=== PATIENT | female | born 1975 | race Caucasian/White ===

== ENCOUNTER 2016-09-30 20:22 | Emergency (ER) | payer MEDICAID ==
[~2016-09-30] VITALS: Ht 172.7 cm; Wt 108.9 kg
[~2016-09-30 20:22] MED LIST: CLOZ100T7 PO; DOCU100C37 PO; ESCI20TA45 PO; FURO40TA4 PO; HYDR50CA3 PO; LEVO500T2 PO; LITH300C PO; LORA10TA7 PO; NORE0.3520 PO; RANI150T11 PO; RSP50S IM; TRAM50TA2 PO
--- NOTE | 2016-09-30 20:50 | ED Integumentary General ---
General Chief Complaint: Skin/Wound Problems Stated Complaint: INFECTION ON LITTLE TOE RIGHT FOOT Nursing Triage Note: PLANTAR WART Source: patient Exam Limitations: no limitations History of Present Illness Time seen by provider: 20:46 Initial Comments To ER with reports of a wart on her foot. This is over the fifth MTP joint on the plantar surface. Been present for quite some time and is causing her pain and causing her to walk differently which is now caused her back pain. Pain in her back does not radiate and there is been no loss of bowel or bladder control or saddle anesthesia Timing/Duration: constant Severity: moderate Associated Symptoms: denies symptoms Allergies and Home Medications Allergies Coded Allergies: Soap (Verified Allergy, Unknown, 02/07/06) benztropine (Verified Allergy, Unknown, 07/08/05) divalproex sodium (Verified Allergy, Unknown, 07/08/05) Home Medications Clozapine 100 Mg Tablet, 200 MG PO DAILY, (Reported) TAKES 2 (100 MG) TABLETS Clozapine 100 Mg Tablet, 250 MG PO HS, (Reported) TAKES 2 & 1/2 OF A (100 MG) TABLET Docusate Sodium 100 Mg Capsule, 100 MG PO BID PRN for CONSTIPATION, (Reported) Escitalopram Oxalate 20 Mg Tablet, 20 MG PO DAILY, (Reported) [place] Carbonate 300 Mg Capsule, 300 MG PO TID, (Reported) Loratadine 10 Mg Tablet, 10 MG PO DAILY, (Reported) Ranitidine HCl 150 Mg Tablet, 150 MG PO BID, (Reported) Risperidone 50 Mg/2 Ml Inj, 50 MG IM EVERY 2 WEEKS, (Reported) Constitutional: see HPI EENTM: see HPI Respiratory: no symptoms reported Cardiovascular: no symptoms reported Genitourinary: no symptoms reported Musculoskeletal: no symptoms reported Skin: no symptoms reported Psychiatric/Neurological: No Symptoms Reported Endocrine: No Symptoms Reported Past Ykmiibs-Hrrcfj-Piocrv Hx Patient Social History Alcohol Use: Denies Use Recreational Drug Use: No Smoking Status: Current Everyday Smoker Type Used: Cigarettes 2nd Hand Smoke Exposure: Yes Recent Foreign Travel: No Contact w/Someone Who Travel: No Recent Infectious Disease Expo: No Recent Hopitalizations: No Immunizations Up To Date Tetanus Booster (TDap): Unknown Date of Influenza Vaccine: May 15, 2015 Seasonal Allergies Seasonal Allergies: Yes Surgeries HX Surgeries: No Respiratory Hx Respiratory Disorders: No Cardiovascular Hx Cardiac Disorders: No Neurological Hx Neurological Disorders: Yes Reproductive System Hx Reproductive Disorders: No Sexually Transmitted Disease: No HIV/AIDS: No Genitourinary Hx Genitourinary Disorders: No Gastrointestinal Hx Gastrointestinal Disorders: Yes (HEART BURN) Musculoskeletal Hx Musculoskeletal Disorders: No Endocrine Hx Endocrine Disorders: No HEENT HX ENT Disorders: No Loss of Vision: Denies Hearing Impairment: Denies Cancer Hx Cancer: No Psychosocial Hx Psychiatric Problems: Yes Behavioral Health Disorders: Anxiety, Bipolar, Schizophrenia, Depression Integumentary HX Skin/Integumentary Disorder: No Blood Transfusions Hx Blood Disorders: Yes (STATES BLOOD TRANSFUSION AT 11 YEARS OLD.) Adverse Reaction to a Blood Tr: No Family Medical History Family Medial History: Patient reports no known family medical history. Physical Exam Vital Signs Vital Sign - Last 12Hours 09/30/16 20:41 Temp 97.7 Pulse 100 Resp 18 B/P (MAP) 135/91 Pulse Ox 98 O2 Delivery Room Air Capillary Refill : Less Than 3 Seconds General Appearance: WD/WN, no apparent distress HEENT: PERRL/EOMI, normal ENT inspection Neck: non-tender, full range of motion, supple Respiratory: no respiratory distress, no accessory muscle use Gastrointestinal: normal bowel sounds, non tender Extremities: normal range of motion, non-tender, other (corn over the plantar surface of the foot at the right fifth MTP joint.) Neurologic/Psychiatric: alert, normal mood/affect, oriented x 3 Skin: normal color, warm/dry Progress/Results/Core Measures Results/Orders My Orders Orders - NEVILLE WILLS APRN Ketorolac Injection (Toradol Injection) (09/30/16 21:00) Orphenadrine Injection (Norflex Injectio (09/30/16 21:00) Vital Signs/I&O Vital Sign - Last 12Hours 09/30/16 20:41 Temp 97.7 Pulse 100 Resp 18 B/P (MAP) 135/91 Pulse Ox 98 O2 Delivery Room Air Blood Pressure Mean: 106 Departure Impression Impression: Primary Impression: [place] of foot Disposition: 01 HOME, SELF-CARE Condition: Stable Departure-Patient Inst. Decision time for Depature: 20:49 Referrals: CIERA DICKSON DPM, RICHARD A DO (PCP/Family) Primary Care Physician AYAD RUIZ DPM JUDY VILLALPANDO DPM Patient Instructions: Corns and Calluses Add. Discharge Instructions: 1. Return to ER for any concerns 2. Purchase some of the bwpy-ncy-jvrejxf corn cushions 3. Follow-up with the physicians listed All discharge instructions reviewed with patient and/or family. Voiced understanding. NEVILLE WILLS [facility] September 30, 2016 20:50
[2016-09-30] MEDS ORDERED: KETOROLAC 60 MG/2 ML VIAL IM ONE (21:00)
[2016-09-30] MEDS ORDERED: ORPHENADRINE 60 MG/2 ML (NORFLEX) AMP IM ONE (21:00)
[2016-09-30 21:07] VITALS: BP 135/91
== END 2016-09-30 21:08 | disposition home or self-care (01) ==
LOC: EDUNIT# 20:22 → ER 20:24
DX: L84 Corns and callosities (principal)
CPT/HCPCS: 96372; 99281

== ENCOUNTER → 2017-01-27 | Outpatient (CLI) | payer MEDICAID ==
--- NOTE | 2017-01-27 14:55 | Diagnostic Imaging Report ---
Three views of the right ankle. INDICATION: Right ankle pain. FINDINGS: There is no fracture, dislocation or radiopaque foreign body. The ankle mortise is normal in configuration. IMPRESSION: Unremarkable exam. Dictated by: Dictated on workstation # [id number]
--- NOTE | 2017-01-27 15:01 | Diagnostic Imaging Report ---
Two views of the right foot. INDICATION: Right foot pain. FINDINGS: No fracture, dislocation or radiopaque foreign body is seen. There is hallux valgus deformity seen. IMPRESSION: Hallux valgus. Dictated by: Dictated on workstation # [id number]
== END ==
LOC: RAD 12:32
PROVIDERS: ATTEND Family Medicine
DX: M20.11 Hallux valgus (acquired), right foot (principal); M25.571 Pain in right ankle and joints of right foot
CPT/HCPCS: 73610; 73630

== ENCOUNTER → 2017-12-03 | Outpatient (CLI) | payer MEDICAID ==
--- NOTE | 2017-12-03 19:12 | Diagnostic Imaging Report ---
INDICATION: Digital mammogram bilateral screening with 3-D tomosynthesis. This study was compared to the prior exam of 10/24/13. At this time, there are no current complaints. The current study was also evaluated with a Computer Aided Detection (CAD) system. FINDINGS: There are scattered fibroglandular densities in both breasts which could obscure a lesion. Overall, there does not appear to have been any significant change when compared to the prior exam. No primary or secondary sign of malignancy is noted. 3D tomographic images fail to show any sign of malignancy. IMPRESSION: 1. There is no evidence of malignancy. 2. The patient should have her annual bilateral screening mammogram on schedule in November of 2018. ACR BI-RADS Category 1: Negative. Result letter will be mailed to the patient. Note: At least 10% of breast cancer is not imaged by mammography. Dictated by: Dictated on workstation # [id number]
== END ==
LOC: RAD 10:10
PROVIDERS: ATTEND Family Medicine
DX: Z12.31 Encounter for screening mammogram for malignant neoplasm of breast (principal)
CPT/HCPCS: 77067

== ENCOUNTER → 2018-12-28 | Outpatient (CLI) | payer MEDICAID ==
--- NOTE | 2018-12-28 19:09 | Diagnostic Imaging Report ---
INDICATION: Routine screening. COMPARISON: Comparison is made with prior mammograms from 12/03/2017 and 10/24/2013. TECHNIQUE: 2-D and 3-D bilateral screening mammography was performed. The current study was also evaluated with a Computer Aided Detection (CAD) system. 3-D tomosynthesis was also performed and reviewed. FINDINGS: Scattered fibroglandular densities are identified bilaterally. The parenchymal pattern is stable. No mass or malignant-appearing microcalcifications are seen. The axillae are unremarkable. IMPRESSION: No mammographic features suspicious for malignancy are identified. ACR BI-RADS Category 1: Negative. Result letter will be mailed to the patient. Note: At least 10% of breast cancer is not imaged by mammography. Dictated by: Dictated on workstation # [id number]
== END ==
LOC: RAD 13:37
PROVIDERS: ATTEND Family Medicine
DX: Z12.31 Encounter for screening mammogram for malignant neoplasm of breast (principal)
CPT/HCPCS: 77067

== ENCOUNTER → 2019-12-30 | Outpatient (CLI) | payer MEDICAID ==
--- NOTE | 2019-12-30 12:52 | Diagnostic Imaging Report ---
INDICATION: Routine screening. Comparison is made with prior mammogram from 12/28/2018 and 12/03/2017. 2-D and 3-D bilateral screening mammography was performed with CAD. Scattered fibroglandular densities are identified bilaterally. The parenchymal pattern is stable. No dominant mass or malignant appearing microcalcifications are seen. Axillae are unremarkable. IMPRESSION: BI-RADS Category 1 No mammographic features suspicious for malignancy are identified. ACR BI-RADS Category 1: Negative. Result letter will be mailed to the patient. Note: At least 10% of breast cancer is not imaged by mammography. Dictated by: Dictated on workstation # [id number]
== END ==
LOC: RAD 10:00
PROVIDERS: ATTEND Family Medicine
DX: Z12.31 Encounter for screening mammogram for malignant neoplasm of breast (principal)
CPT/HCPCS: 77063; 77067

== ENCOUNTER 2021-10-29 20:20 | Emergency (ER) | payer MEDICAID ==
[~2021-10-29] VITALS: Ht 173 cm; Wt 97.3 kg
[~2021-10-29 20:20] MED LIST changes: +ESCI20TA39 PO; -ESCI20TA45 PO
[2021-10-29 20:28] VITALS: BP 133/83
[2021-10-29] MEDS ORDERED: FAMO20TA5 (20:34)
[2021-10-29] MEDS ORDERED: FURO40TA4 (20:34)
[2021-10-29] MEDS ORDERED: RX-TRIMETH/SULFA. 160-800 MG (BACTRIM DS) TAB PPK#2 PO STA (21:06)
[2021-10-29] MEDS ORDERED: SULF1TAB38 PO (21:13)
[2021-10-29] MEDS ORDERED: MUPI22OI2 TP (21:13)
--- NOTE | 2021-10-29 21:13 | ED Integumentary General ---
General Chief Complaint: Skin/Wound Problems Stated Complaint: SPIDER BITE Nursing Triage Note: brought in by [facility] for possible spider bite to medial right eyebrow x2 days. site red/swollen. Source: patient History of Present Illness Date Seen by Provider: Oct 29, 2021 Time Seen by Provider: 20:57 Initial Comments PT ARRIVES VIA EMS FROM HOME--WALKS INTO ER FROM THE AMBULANCE C/O SORE TO FOREHEAD FOR THE LAST COUPLE OF DAYS HAS SOME PAIN, REDNESS AND SWELLING AROUND THE SORE NO FEVER NO DRAINAGE HAS MULTIPLE OTHER SORES TO FACE, ARMS AND CHEST AND PT NOTED TO BE PICKING AT SORES ON HER ARMS DURING EXAM LAST TETANUS IS UNKNOWN PCP: DR. MOORE Allergies and Home Medications Allergies Coded Allergies: Soap (Verified Allergy, Unknown, 02/07/06) benztropine (Verified Allergy, Unknown, 07/08/05) divalproex sodium (Verified Allergy, Unknown, 07/08/05) Patient Home Medication List Home Medication List Reviewed: Yes Docusate Sodium (Docusate Sodium) 100 Mg Capsule, 100 MG PO BID PRN for CONSTIPATION, (Reported) Entered as Reported by: LAQUITA SAAB on 07/16/15 1025 Last Action: Last Taken Edited Escitalopram Oxalate (Escitalopram Oxalate) 20 Mg Tablet, 20 MG PO DAILY, (Reported) Entered as Reported by: BOB SARMIENTO on 07/14/151455 Last Action: Last Taken Edited Famotidine (Famotidine) 20 Mg Tablet, (Reported) Entered as Reported by: BINH TADEO on 10/29/212033 Last Action: New Order Furosemide (Furosemide) 40 Mg Tablet, (Reported) Entered as Reported by: BINH TADEO on 10/29/212033 Last Action: New Order [place] Carbonate ([place] Carbonate) 300 Mg Capsule, 300 MG PO TID, (Reported) Entered as Reported by: BOB SARMIENTO on 07/14/151455 Last Action: Last Taken Edited Mupirocin (Mupirocin) 2 % Oint...g., 22 GM TP BID Prescribed by: SHAHAB MCINTOSH on 10/29/212112 Risperidone (Risperdal Consta) 50 Mg/2 Ml Inj, 50 MG IM EVERY 2 WEEKS, (Reported) Entered as Reported by: BOB SARMIENTO on 07/14/151455 Last Action: Last Taken Edited Sulfamethoxazole/Trimethoprim (Bactrim Ds Tablet) 1 Each Tablet, 1 EACH PO BID Prescribed by: SHAHAB MCINTOSH on 10/29/212112 Discontinued Medications Clozapine (Clozapine) 100 Mg Tablet, 200 MG PO DAILY, (Reported) Discontinued Reason: No Longer Taking Entered as Reported by: BOB SARMIENTO on 07/14/151455 Last Action: Discontinued Clozapine (Clozapine) 100 Mg Tablet, 250 MG PO HS, (Reported) Discontinued Reason: No Longer Taking Entered as Reported by: LAQUITA SAAB on 07/16/15 102 Last Action: Discontinued Loratadine (Loratadine) 10 Mg Tablet, 10 MG PO DAILY, (Reported) Discontinued Reason: No Longer Taking Entered as Reported by: BOB SARMIENTO on 07/14/151455 Last Action: Discontinued Ranitidine HCl (Ranitidine HCl) 150 Mg Tablet, 150 MG PO BID, (Reported) Discontinued Reason: No Longer Taking Entered as Reported by: BOB SARMIENTO on 07/14/151455 Last Action: Discontinued Review of Systems Review of Systems Constitutional: no symptoms reported EENTM: see HPI Skin: see HPI Psychiatric/Neurological: No Symptoms Reported; Denies Headache Past Vpolvaw-Ylxzly-Unyqui Hx Patient Social History Tobacco Use?: Yes Tobacco type used: Cigarettes Smoking Status: Current Everyday Smoker Substance use?: No Alcohol Use?: Yes Alcohol Frequency: Once in a while Pt feels they are or have been: No Immunizations Up To Date Tetanus Booster (TDap): Unknown Seasonal Allergies Seasonal Allergies: Yes Past Medical History Surgery/Hospitalization HX: denies Surgeries: No Respiratory: No Cardiac: No Neurological: Yes Headaches /Migraines Reproductive Disorders: No Sexually Transmitted Disease: No HIV/AIDS: No Gastrointestinal: Yes (HEART BURN) Gastroesophageal Reflux Musculoskeletal: No Endocrine: No HEENT: No Loss of Vision: Denies Hearing Impairment: Denies Cancer: No Psychosocial: Yes Anxiety, Bipolar, Schizophrenia, Depression Integumentary: Yes (PLANTAR WART) Blood Disorders: Yes (STATES BLOOD TRANSFUSION AT 11 YEARS OLD.) Adverse Reaction/Blood Tranf: No Family Medical History Patient reports no known family medical history. Physical Exam Vital Signs Vital Signs - First Documented 10/29/21 20:28 Temp 36.8 Pulse 89 Resp 18 B/P (MAP) 133/83 (100) Pulse Ox 99 O2 Delivery Room Air Capillary Refill : Less Than 3 Seconds General Appearance: WD/WN, no apparent distress HEENT: PERRL/EOMI, other (1 CM SCABBED AREA WITH APPROXIMATELY 2 1/2 CM SURROUNDING ERYTHEMA, WARMTH, TENDERNESS AND MILD SWELLING. NO FLUCTUANCE, NO DRAINAGE. NO STREAKS. 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 MULTIPLE SORES/SCARS/SCABS TO FACE, ARMS, CHEST) Progress/Results/Core Measures Results/Orders My Orders Orders - SHAHAB MCINTOSH DO Dipht,Pertuss(Acell),Tet Adult (Boostrix (10/29/21 21:15) Clindamycin Injection (Cleocin Injection (10/29/21 21:15) Rx-Trimeth/Sulfameth Ds Tab (Rx-Bactrim/ (10/29/21 21:06) Clindamycin Injection (Cleocin Injection (10/29/21 21:16) Rx-Trimeth/Sulfameth Ds Tab (Rx-Bactrim/ (10/29/21 21:16) Dipht,Pertuss(Acell),Tet Adult (Boostrix (10/29/21 21:16) Medications Given in ED Current Medications Medications Dose Ordered Sig/Bassem Route Start Time Stop Time Status Last Admin Dose Admin Clindamycin Phosphate 600 mg ONCE ONCE IM 10/29/21 21:15 10/29/21 21:16 DC 10/29/21 21:22 600 MG Diphtheria/ Tetanus/Acell Pertussis 0.5 ml ONCE ONCE IM 10/29/21 21:15 10/29/21 21:16 DC 10/29/21 21:22 0.5 ML Vital Signs/I&O 10/29/21 20:28 Temp 36.8 Pulse 89 Resp 18 B/P (MAP) 133/83 (100) Pulse Ox 99 O2 Delivery Room Air Blood Pressure Mean: 100 Departure Impression Primary Impression: INFECTED WOUND TO FOREHEAD Additional Impressions: SUSPECTED MRSA Jogkiehvpm-ylstcppqz-ovsvxef (DPT) vaccination administered at current visit Disposition: 01 HOME, SELF-CARE Condition: Stable Departure-Patient Inst. Decision time for Depature: :10 Referrals: AYAD MOORE DO (PCP/Family) Primary Care Physician Patient Instructions: Cellulitis (Skin Infection), Adult (DC), Diphtheria and Tetanus Toxoids, and Acellular Pertussis Vaccine, MRSA (DC) Add. Discharge Instructions: DO NOT PICK AT, SQUEEZE OR POKE/TRY TO POP THE AREA CLEAN THE AREA TWICE A DAY WITH ANTIBACTERIAL SOAP AND WATER TYLENOL AND MOTRIN NEEDED FOR PAIN FOLLOW UP WITH DR. MOORE IN 2 DAYS FOR FURTHER CARE--CALL IN THE MORNING TO SCHEDULE APPOINTMENT All discharge instructions reviewed with patient and/or family. Voiced underst anding. Scripts Mupirocin (Mupirocin) 2 % Oint...g. 22 GM TP BID, #1 TUBE Prov: SHAHAB MCINTOSH DO 10/29/21 Sulfamethoxazole/Trimethoprim (Bactrim Ds Tablet) 1 Each Tablet 1 EACH PO BID, #20 TAB Prov: SHAHAB MCINTOSH DO 10/29/21 SHAHAB MCINTOSH DO Oct 29, 2021 21:13
[2021-10-29] MEDS ORDERED: CLINDAMYCIN 600 MG/4ML (CLEOCIN) VIAL IM ONE (21:15)
[2021-10-29] MEDS ORDERED: TETANUS,DIPTH,PERTUSS P/F (BOOSTRIX) 0.5 ML VIAL IM ONE ×2 (21:15→21:16)
[2021-10-29] MEDS ORDERED: RX-TRIMETH/SULFA. 160-800 MG (BACTRIM DS) TAB PPK#2 PO ONE (21:16)
[2021-10-29] MEDS ORDERED: CLINDAMYCIN 600 MG/4ML (CLEOCIN) VIAL ONE (21:16)
== END 2021-10-29 21:26 | disposition home or self-care (01) ==
LOC: EDUNIT# 20:20 → ER 20:22
DX: S00.80XA Unspecified superficial injury of other part of head, initial encounter (principal); F17.210 Nicotine dependence, cigarettes, uncomplicated; Z23 Encounter for immunization
CPT/HCPCS: 90715; 99284

== ENCOUNTER 2022-02-26 16:47 | Emergency (ER) | payer MEDICAID ==
[~2022-02-26] VITALS: Ht 172 cm; Wt 81.0 kg
[~2022-02-26 16:47] MED LIST changes: +FAMO20TA5; +FURO40TA4; +MUPI22OI2 TP; +SULF1TAB38 PO
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
[2022-02-26 17:32] LABS: BASOPHILS # (AUTO) 0.1 10^3/uL (0.0-0.1); BASOPHILS % (AUTO) 1 % (0-10); EOSINOPHILS % (AUTO) 0 % (0-10); HEMATOCRIT 40 % (35-52); HEMOGLOBIN 13.1 g/dL (11.5-16.0); LYMPHOCYTES % (AUTO) 37 % (12-44); MEAN CORPUSCULAR HEMOGLOBIN 30 pg (25-34); MEAN CORPUSCULAR HGB CONC 33 g/dL (32-36); MEAN CORPUSCULAR VOLUME 91 fL (80-99); MEAN PLATELET VOLUME 10.1 fL (9.0-12.2); MONOCYTES # (AUTO) 0.7 10^3/uL (0.0-1.0); MONOCYTES % (AUTO) 7 % (0-12); NEUTROPHILS # (AUTO) 6.1 10^3/uL (1.8-7.8); NEUTROPHILS % (AUTO) 56 % (42-75); PLATELET COUNT 283 10^3/uL (130-400); WHITE BLOOD COUNT 10.9 10^3/uL (4.3-11.0)
[2022-02-26 17:45] LABS: ALBUMIN 3.7 GM/DL (3.2-4.5); CHLORIDE 105 MMOL/L (98-107); POTASSIUM 3.4 MMOL/L (3.6-5.0); SODIUM 137 MMOL/L (135-145)
[2022-02-26 17:47] LABS: CALCIUM 9.5 MG/DL (8.5-10.1)
[2022-02-26 17:48] LABS: GLUCOSE 93 MG/DL (70-105); TOTAL PROTEIN 6.6 GM/DL (6.4-8.2)
[2022-02-26 17:49] LABS: CARBON DIOXIDE 25 MMOL/L (21-32)
[2022-02-26 17:50] LABS: BILIRUBIN,TOTAL 0.4 MG/DL (0.1-1.0)
[2022-02-26 17:52] LABS: ALKALINE PHOSPHATASE 100 U/L (40-136); GFR ESTIMATED 91
[2022-02-26 17:53] LABS: BUN/CREATININE RATIO 4
[2022-02-26 17:54] LABS: SALICYLATE < 5.0 MG/DL (5.0-20.0)
[2022-02-26 17:55] LABS: ALANINE AMINOTRANSFERASE 13 U/L (0-55); MAGNESIUM 1.9 MG/DL (1.6-2.4)
[2022-02-26 18:06] LABS: ACETAMINOPHEN < 10 UG/ML (10-30)
[2022-02-26 18:40] LABS: BILIRUBIN,URINE NEGATIVE (NEGATIVE); CLARITY,URINE CLEAR; COLOR,URINE YELLOW; GLUCOSE, URINE (UA) NEGATIVE (NEGATIVE); KETONES,URINE NEGATIVE (NEGATIVE); LEUKOCYTE ESTERASE ,URINE NEGATIVE (NEGATIVE); NITRITE,URINE NEGATIVE (NEGATIVE); PH,URINE 6.5 (5-9); PROTEIN,URINE NEGATIVE (NEGATIVE)
[2022-02-26 18:55] LABS: AMPHETAMINE SCREEN, URINE NEGATIVE (NEGATIVE); BARBITURATE SCREEN URINE NEGATIVE (NEGATIVE); BENZODIAZEPINES SCREEN URINE NEGATIVE (NEGATIVE); CANNABINOID SCREEN, URINE NEGATIVE (NEGATIVE); COCAINE SCREEN URINE NEGATIVE (NEGATIVE); HCG,QUALITATIVE URINE NEGATIVE (NEGATIVE); METHADONE STAT NEGATIVE (NEGATIVE); OPIATE SCREEN URINE NEGATIVE (NEGATIVE); OXYCODONE STAT NEGATIVE (NEGATIVE); PROPOXYPHENE STAT NEGATIVE (NEGATIVE); TRICYCLIC ANTIDEPRESSANTS SCRE NEGATIVE (NEGATIVE)
[2022-02-26 19:19] LABS: BACTERIA,URINE TRACE /HPF
--- NOTE | 2022-02-26 20:23 | Diagnostic Imaging Report ---
EXAMINATION: Right foot 3 views. HISTORY: Foot pain. COMPARISON: 01/27/2017. FINDINGS: There is hallux valgus. No acute fracture. There is remodeling of the first and second metatarsal bases. There is an old fracture of the second metatarsal base. No acute fracture is seen. 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 IMPRESSION: No acute fracture. There is an old base of second metatarsal fracture and hallux valgus. Dictated by: Dictated on workstation # [id number]
--- NOTE | 2022-02-26 20:24 | Diagnostic Imaging Report ---
EXAMINATION: Abdomen 1 view. HISTORY: Abdominal pain. COMPARISON: None available. FINDINGS: Bowel gas pattern is nonspecific. There is paucity of gas. No dilated loops. IMPRESSION: Paucity of bowel gas in the abdomen. Dictated by: Dictated on workstation # [id number]
[2022-02-27] MEDS ORDERED: NORE0.3520 (01:32)
[2022-02-27] MEDS ORDERED: PRD10T (01:32)
[2022-02-27 11:29] VITALS: BP 133/77
== END 2022-02-27 11:29 | disposition home or self-care (01) ==
LOC: EDUNIT# 16:47 → ER 16:49
DX: F25.0 Schizoaffective disorder, bipolar type (principal); F23 Brief psychotic disorder; F17.200 Nicotine dependence, unspecified, uncomplicated; Z20.822 Contact with and (suspected) exposure to COVID-19
CPT/HCPCS: 36415; 73630; 74018; 80053; 80178; 80306; 80320; 80329; 81000; 83735; 84443; 84703; 85025; 87636; 93005

== ENCOUNTER 2022-08-02 13:30 | Emergency (ER) | payer MEDICAID ==
[~2022-08-02 13:30] MED LIST changes: +CLOZ100T12 PO; -CLOZ100T7 PO; +NORE0.3520; +PRD10T
--- NOTE | 2022-08-02 14:04 | ED Upper Extremity ---
General Chief Complaint: Upper Extremity Stated Complaint: RT THUMB PAIN Nursing Triage Note: PT AMB TO [facility] WITH C/O BILAT THUMB PAIN X3DAYS. PT DENIES INJURY AND STATES SHE WOKE UP WITH THEM HURTING. PT REPORTS SWELLING AND BURNING OF BILAT THUMB. Source: patient Exam Limitations: no limitations History of Present Illness Date Seen by Provider: Aug 02, 2022 Time Seen by Provider: 13:53 Initial Comments 47-year-old female presents to the ED with complaints of bilateral thumb pain for the last 4 days. Describes the pain as stinging and burning. Reports she has been using Neosporin. Denies fevers. Past medical history includes schizophrenia. Allergies and Home Medications Allergies Coded Allergies: benztropine (Verified Allergy, Unknown, 07/08/05) divalproex sodium (Verified Allergy, Unknown, 07/08/05) soap (Verified Allergy, Unknown, 02/07/06) Patient Home Medication List Home Medication List Reviewed: Yes Cephalexin (Cephalexin) 500 Mg Tablet, 500 MG PO QID Prescribed by: Neris Martinez on 08/02/22 145 Escitalopram Oxalate (Escitalopram Oxalate) 20 Mg Tablet, 20 MG PO DAILY, (Reported) Entered as Reported by: BOB SARMIENTO on 07/14/15 145 [place] Carbonate (Finger Carbonate) 300 Mg Capsule, 300 MG PO TID, (Reported) Entered as Reported by: BOB SARMIENTO on 07/14/151455 Norethindrone (Norethindrone) 0.35 Mg Tablet, (Reported) Entered as Reported by: BINH TADEO on 02/27/22131 Prednisone (Prednisone) 10 Mg Tab, (Reported) Entered as Reported by: BINH TADEO on 02/27/22131 Risperidone (Risperdal Consta) 50 Mg/2 Ml Inj, 50 MG IM EVERY 2 WEEKS, (Reported) Entered as Reported by: BOB SARMIENTO on 07/14/15 145 Review of Systems Constitutional: no symptoms reported Respiratory: no symptoms reported Cardiovascular: no symptoms reported Skin: other (Swelling, redness to bilateral thumbs around nail) Past Sdbltbr-Dmbhdq-Oorcvo Hx Patient Social History Tobacco Use?: Yes Tobacco type used: Cigarettes Substance use?: No Alcohol Use?: No Pt feels they are or have been: No Immunizations Up To Date Tetanus Booster (TDap): Unknown First/Initial COVID19 Vaccinat: UNKNOWN Second COVID19 Vaccination Jovanny: UNKNOWN Third COVID19 Vaccination Date: UNKNOWN Seasonal Allergies Seasonal Allergies: Yes Past Medical History Surgery/Hospitalization HX: denies Surgeries: No Respiratory: No Cardiac: No Neurological: Yes Headaches /Migraines Reproductive Disorders: No Sexually Transmitted Disease: No HIV/AIDS: No Gastrointestinal: Yes (HEART BURN) Gastroesophageal Reflux Musculoskeletal: No Endocrine: No HEENT: No Loss of Vision: Denies Hearing Impairment: Denies Cancer: No Psychosocial: Yes Anxiety, Bipolar, Schizophrenia, Depression Integumentary: Yes (PLANTAR WART) Blood Disorders: Yes (STATES BLOOD TRANSFUSION AT 11 YEARS OLD.) Adverse Reaction/Blood Tranf: No Family Medical History Patient reports no known family medical history. Physical Exam Vital Signs Vital Signs - First Documented 08/02/22 08/02/22 13:41 15:00 Pulse 93 Resp 18 B/P (MAP) 134/85 Pulse Ox 97 Capillary Refill : Less Than 3 Seconds Height, Weight, BMI Height: 5'8.00" Weight: 240lbs. 5.0oz. 108.794469ll; 27.00 BMI Method:Stated General Appearance: WD/WN, no apparent distress Neck: supple, normal inspection Cardiovascular: regular rate, rhythm, no edema, no gallop, no JVD, no murmur Respiratory: lungs clear, normal breath sounds, no respiratory distress, no accessory muscle use Hand: infection (paronychia, audelia thumbs) Neurologic/Psychiatric: alert, normal mood/affect Skin: normal color, warm/dry Procedures/Interventions I&D : Site: right thumb Blade Size: 11 Progress Area was prepped with alcohol. Thumb blocked with 1% lidocaine without epinephrine. Area was incised with 11 blade. Incision linear. Wound treatment included calculation and expression of purulent material. Culture collected. Progress/Results/Core Measures Results/Orders My Orders Orders - NERIS MARTINEZ APRN Lidocaine 1% Inj 10 Ml (Xylocaine 1% Inj (08/02/22 14:15) Wound Culture (08/02/22 14:46) Medications Given in ED Current Medications Medications Dose Ordered Sig/Bassem Route Start Time Stop Time Status Last Admin Dose Admin Lidocaine HCl 10 ml ONCE ONCE INJ 08/02/22 14:15 08/02/22 14:16 DC 08/02/22 14:40 10 ML Vital Signs/I&O 08/02/22 08/02/22 13:41 15:00 Pulse 93 93 Resp 18 18 B/P (MAP) 134/85 Pulse Ox 97 97 Progress Progress Note : Time: 14:05 Progress Note Patient seen and evaluated, resting comfortably, no acute distress. Based on exam and symptoms, likely paronychia of bilateral thumbs. Will attempt to drain abscess on the right thumb. 1450 abscess on right thumb I&D'd. Moderate amount of yellow pus drained. Will discharge with antibiotic. Discharge instructions and return precautions provided. Departure Impression Primary Impression: Paronychia Disposition: HOME, SELF-CARE Condition: Stable Departure-Patient Inst. Decision time for Depature: 14:50 Referrals: AYAD MOORE DO (PCP/Family) Primary Care Physician Patient Instructions: Paronychia (DC) Add. Discharge Instructions: Complete full course of antibiotic. Do not bite the skin around her nails. Make sure you keep your hands clean and dry. Follow-up with primary care provider. Return for any new, concerning, or worsening symptoms. All discharge instructions reviewed with patient and/or family. Voiced understan karol. Scripts Cephalexin (Cephalexin) 500 Mg Tablet 500 MG PO QID for 7 Days, #28 TAB 0 Refills Prov: NERIS MARTINEZ APRN 08/02/22 NERIS MARTINEZ APRN Aug 02, 2022 14:04
[2022-08-02] MEDS ORDERED: LIDOCAINE 1% INJ 10 ML VIAL INJ ONE (14:15)
[2022-08-02] MEDS ORDERED: CEPH500T PO (14:51)
[2022-08-02 15:00] VITALS: BP 134/85
== END 2022-08-02 15:00 | disposition home or self-care (01) ==
LOC: EDUNIT# 13:30 → ER 13:32
DX: L03.011 Cellulitis of right finger (principal); F17.210 Nicotine dependence, cigarettes, uncomplicated
CPT/HCPCS: 87070; 87077; 87186; 87205

== ENCOUNTER → 2022-09-17 | Outpatient (CLI) | payer MEDICAID ==
[~2022-09-17] MED LIST changes: +CEPH500T PO
== END ==
LOC: WOUNDCARE 09:23
PROVIDERS: ATTEND Family Medicine
DX: M21.611 Bunion of right foot (principal); L84 Corns and callosities; E11.40 Type 2 diabetes mellitus with diabetic neuropathy, unspecified
CPT/HCPCS: 99213

== ENCOUNTER → 2022-12-31 | Outpatient (CLI) | payer MEDICAID ==
[2022-12-31 08:25] LABS: BASOPHILS # (AUTO) 0.1 10^3/uL (0.0-0.1); BASOPHILS % (AUTO) 1 % (0-10); EOSINOPHILS % (AUTO) 0 % (0-10); HEMATOCRIT 40 % (35-52); HEMOGLOBIN 12.9 g/dL (11.5-16.0); LYMPHOCYTES # (AUTO) 2.8 10^3/uL (1.0-4.0); LYMPHOCYTES % (AUTO) 24 % (12-44); MEAN CORPUSCULAR HEMOGLOBIN 29 pg (25-34); MEAN CORPUSCULAR HGB CONC 33 g/dL (32-36); MEAN CORPUSCULAR VOLUME 88 fL (80-99); MEAN PLATELET VOLUME 9.9 fL (9.0-12.2); MONOCYTES # (AUTO) 1.1 10^3/uL (0.0-1.0); MONOCYTES % (AUTO) 9 % (0-12); NEUTROPHILS # (AUTO) 7.6 10^3/uL (1.8-7.8); NEUTROPHILS % (AUTO) 65 % (42-75); PLATELET COUNT 307 10^3/uL (130-400); WHITE BLOOD COUNT 11.6 10^3/uL (4.3-11.0)
[2022-12-31 08:46] LABS: BILIRUBIN,TOTAL 0.3 MG/DL (0.1-1.0); CALCIUM 9.2 MG/DL (8.5-10.1); CREATININE SERUM 0.97 MG/DL (0.60-1.30); POTASSIUM 4.3 MMOL/L (3.6-5.0); TOTAL PROTEIN 7.1 GM/DL (6.4-8.2)
--- NOTE | 2022-12-31 09:40 | Diagnostic Imaging Report ---
EXAMINATION: Right clavicle radiographs, 2 views. COMPARISON: None. HISTORY: 47-year-old female, right clavicle pain. FINDINGS: There is no identified acute fracture. The acromioclavicular joint is normally aligned. There are mild acromioclavicular degenerative changes without large undersurface osteophyte. IMPRESSION: Mild acromioclavicular degenerative changes without large undersurface osteophyte. Dictated by: Dictated on workstation # [id number]
--- NOTE | 2022-12-31 09:48 | Diagnostic Imaging Report ---
INDICATION: Cough, congestion, and wheezing. TECHNIQUE: Two view chest at 8:28 AM. CORRELATION STUDY: 07/19/2015. FINDINGS: The heart size, mediastinal configuration, and pulmonary vasculature are within normal limits. Prominent interstitial markings do appear to be slightly more prominent from prior exam and may be infiltrate versus edema. No consolidating infiltrate. No effusion. Slightly accentuated thoracic kyphosis. IMPRESSION: Mildly prominent interstitial lung markings may reflect edema versus atypical interstitial infiltrate. No consolidating infiltrate. Dictated by: Dictated on workstation # [id number]
--- NOTE | 2022-12-31 09:55 | Diagnostic Imaging Report ---
INDICATION: Needle in right big toe. TECHNIQUE: AP right foot along with oblique and lateral view of the right great toe at 8:42 AM. CORRELATION STUDY: 02/26/2022. FINDINGS: Prominent severity hallux valgus primus varus alignment. Mild to moderately advanced degenerative changes of the 1st MTP joint including hypertrophic changes of the sesamoid bones. There are findings compatible with previous fracture deformity involving the 2nd and likely 3rd metatarsals. An acute bony abnormality is not demonstrated. No radiographic metallic foreign body. IMPRESSION: No radiographic foreign body in the region of the great toe. Dictated by: Dictated on workstation # [id number]
== END ==
LOC: RAD 08:09
PROVIDERS: ATTEND Family Medicine
DX: M19.011 Primary osteoarthritis, right shoulder (principal); R91.8 Other nonspecific abnormal finding of lung field
CPT/HCPCS: 36415; 71046; 73000; 73660; 80053; 85025